=== PATIENT | male | born 1995 | race Caucasian/White ===

== ENCOUNTER 2018-06-14 11:29 | Emergency (ER) | payer OTHER ==
[2018-06-14 11:36] VITALS: BP 121/75; PULSE 83; RESP 18; TEMP 98.8
--- NOTE | 2018-06-14 11:57 | ED ---
Recheck HPI - General Chief Complaint: Recheck/Abnormal Lab/Rx Stated Complaint: NVD/ DR NOTE Time Seen by Provider: 06/14/18 11:37 Source: patient, RN notes reviewed, old records reviewed Mode of arrival: ambulatory Limitations: no limitations - History of Present Illness Initial Comments: 22-year-old male presents from same chief complaint of any return to work. Patient was signed vomiting and diarrhea for the past 3 days. He called off of work. He states he needs a return to work note. Patient states that he has had no recent fever or chills. No vomiting. Patient has had no chest pain or shortness of breath. Patient denies any recent fevers. - Related Data Home Medications Medication Instructions Recorded Confirmed Acetaminophen Tab [Tylenol Tab] 1,000 mg PO Q6HR PRN 06/14/18 06/14/18 Allergies Allergy/AdvReac Type Severity Reaction Status Date / Time Cephalosporins Allergy Unknown Verified 06/14/18 11:48 Childhood Review of Systems ROS Statement: Those systems with pertinent positive or pertinent negative responses have been documented in the HPI. ROS Other: All systems not noted in ROS Statement are negative. Past Medical History Past Medical History: No Reported History History of Any Multi-Drug Resistant Organisms: None Reported Past Surgical History: No Surgical Hx Reported Past Psychological History: Anxiety Smoking Status: Current every day smoker Past Alcohol Use History: Rare Past Drug Use History: None Reported General Exam - General Exam Comments Initial Comments: 22-year-old male. Limitations: no limitations General appearance: alert, in no apparent distress Head exam: Present: atraumatic, normocephalic, normal inspection Eye exam: Present: normal appearance, PERRL, EOMI. Absent: scleral icterus, conjunctival injection, periorbital swelling ENT exam: Present: normal exam, normal oropharynx, mucous membranes moist Neck exam: Present: normal inspection. Absent: tenderness, meningismus, lymphadenopathy Respiratory exam: Present: normal lung sounds bilaterally. Absent: respiratory distress, wheezes, rales, rhonchi, stridor Cardiovascular Exam: Present: regular rate, normal rhythm, normal heart sounds. Absent: systolic murmur, diastolic murmur, rubs, gallop, clicks GI/Abdominal exam: Present: soft, normal bowel sounds. Absent: distended, tenderness, guarding, rebound, rigid Extremities exam: Present: normal inspection, full ROM, normal capillary refill. Absent: tenderness, pedal edema, joint swelling, calf tenderness Back exam: Present: normal inspection Neurological exam: Present: alert, oriented X3, CN II-XII intact Psychiatric exam: Present: normal affect, normal mood Skin exam: Present: warm, dry, intact, normal color. Absent: rash Course Vital Signs 06/14/18 11:32 Temperature 98.8 F Pulse Rate 83 Respiratory 18 Rate Blood Pressure 121/75 O2 Sat by Pulse 96 Oximetry Medical Decision Making - Medical Decision Making 22-year-old male presents today needing a return to work note. He's had nausea vomiting diarrhea for the past 3 days. Patient at this time states he feels well and Patient states that he needs a note to return to work because he missed the past 3 days. Patient denies any recent abdominal pain and otherwise feels well. Patient was given a return to work note for today. I discussed that he follows up with his PCP. Discussed if he has any further symptoms he should return to the emergency department or follow-up with his primary care provider for reevaluation. Patient agrees to treatment plan will comply. Disposition Clinical Impression: Return to work exam Disposition: HOME SELF-CARE Condition: Good Instructions: Return to Work Instructions (ED) Additional Instructions: Patient has a follow-up with primary care provider. Return to emergency department if any alarming signs or symptoms occur. Is patient prescribed a controlled substance at d/c from ED?: No Referrals: None,Stated [Primary Care Provider] - 1-2 days Citlalli Cochran MD [STAFF PHYSICIAN] - 1-2 days Time of Disposition: 11:56
== END 2018-06-14 12:12 | disposition home or self-care (01) ==
LOC: EC 11:29
DX: Z02.89 Encounter for other administrative examinations (principal); F17.200 Nicotine dependence, unspecified, uncomplicated; Z88.1 Allergy status to other antibiotic agents
CPT/HCPCS: 99284